=== PATIENT | female | born 1980 | race Caucasian/White ===

== ENCOUNTER 2017-03-26 17:46 | Emergency (ER) | payer SELFPAY ==
[~2017-03-26] VITALS: Ht 147.3 cm; Wt 73.6 kg
[~2017-03-26 17:46] MED LIST: IBUP1TAB73
[2017-03-26 22:09] VITALS: BP 122/82
[2017-03-26] MEDS ORDERED: FLUORESCEIN SODIUM 1MG/STRIP OP ONE (23:00)
[2017-03-26] MEDS ORDERED: TETRACAINE 0.5% OPHTH DROPS 4ML OP ONE (23:00)
[2017-03-26] MEDS ORDERED: DIPHENHYDRAMINE 50MG CAPSULE PO ONE (23:45)
== END 2017-03-27 01:13 | disposition home or self-care (01) ==
LOC: ER 17:46
DX: H10.13 Acute atopic conjunctivitis, bilateral (principal)
CPT/HCPCS: 99283; J7050; Q0163

== ENCOUNTER 2017-12-18 20:15 | Emergency (ER) | payer SELFPAY ==
[~2017-12-18] VITALS: Ht 149.9 cm; Wt 68.6 kg
[2017-12-18 21:41] VITALS: BP 139/83
== END 2017-12-18 23:45 | disposition left against medical advice (07) ==
LOC: ER 23:29
DX: Z53.21 Procedure and treatment not carried out due to patient leaving prior to being seen by health care provider (principal)

== ENCOUNTER 2024-02-06 17:03 | Emergency (ER) | payer MEDICAID ==
[~2024-02-06] VITALS: Ht 157.5 cm; Wt 82.0 kg
[2024-02-06 17:14] VITALS: O2SAT 88
[2024-02-06] MEDS ORDERED: IBUPROFEN 600MG TABLET PO STA (17:23)
[2024-02-06 17:52] LABS: BASOPHILS % 0.7 % (0.0-2.0); DIFFERENTIAL COMMENT 0; EOSINOPHILS % 2.9 % (0.0-5.0); HEMOGLOBIN. 11.6 g/dL (12.0-16.0); LYMPHOCYTES % 36.3 % (20.0-50.0); MEAN CORPUSCULAR HEMOGLOBIN 26.1 pg (28.0-32.0); MEAN CORPUSCULAR HGB CONC 33.2 g/dL (31.0-37.0); MEAN CORPUSCULAR VOLUME 78.5 fL (81.0-99.0); MEAN PLATELET VOLUME 7.1 fl (7.4-10.4); MONOCYTES % 8.6 % (2.0-8.0); NEUTROPHILS % 51.5 % (40.0-76.0); PLATELET 488 x1000/uL (130-400); RED BLOOD CELL COUNT 4.47 mill/uL (4.2-5.4); RED CELL DISTRIBUTION WIDTH 14.7 % (11.6-14.6); WHITE BLOOD COUNT 11.6 x1000/uL (4.5-11.0)
[2024-02-06 17:59] LABS: CHLORIDE 104 mEq/L (98-107); POTASSIUM 3.7 mEq/L (3.5-5.1); SODIUM 138 mEq/L (136-145)
[2024-02-06 18:00] LABS: CALCIUM 8.4 mg/dL (8.7-10.4); CARBON DIOXIDE 27 mEq/L (21-32)
[2024-02-06 18:05] LABS: CREATININE 0.6 mg/dL (0.6-1.0); GLUCOSE 103 mg/dL (70-105); UREA NITROGEN BLOOD 10 mg/dL (9-23)
[2024-02-06 18:07] LABS: ALANINE AMINOTRANSFERASE 18 IU/L (10-49); ALBUMIN 4.2 g/dL (3.2-4.8); ASPARTATE AMINOTRANSFERASE 18 IU/L (<34); BILIRUBIN TOTAL 0.2 mg/dL (0.1-1.0); PROTEIN TOTAL 7.1 g/dL (6.0-8.3)
[2024-02-06 18:13] LABS: TROPONIN I HIGH SENSITIVITY < 4 ng/L (3.0-34)
[2024-02-06] MEDS: IBUPROFEN 600MG TABLET PO NR (21:55)
[2024-02-06 22:24] LABS: TROPONIN I HIGH SENSITIVITY < 4 ng/L (3.0-34)
[2024-02-06 23:18] VITALS: BP 140/67; PULSE 78; RESP 16; TEMP 98.8
== END 2024-02-06 23:19 | disposition home or self-care (01) ==
LOC: ER 17:03
DX: R07.89 Other chest pain (principal); I10 Essential (primary) hypertension
CPT/HCPCS: 36415; 71045; 80053; 84484; 85025; 93005; 99285

== ENCOUNTER 2024-03-10 23:05 | Emergency (ER) | payer MEDICAID ==
[~2024-03-10] VITALS: Ht 160 cm; Wt 77.0 kg
[2024-03-10 23:07] VITALS: O2SAT 98
[2024-03-10] MEDS ORDERED: ASPIRIN 81MG TABLET PO ONE (23:15)
[2024-03-10 23:41] LABS: CHLORIDE 104 mEq/L (98-107); POTASSIUM 3.6 mEq/L (3.5-5.1); SODIUM 137 mEq/L (136-145)
[2024-03-10 23:42] LABS: CARBON DIOXIDE 24 mEq/L (21-32)
[2024-03-10 23:43] LABS: CALCIUM 9.4 mg/dL (8.7-10.4)
[2024-03-10 23:45] LABS: INR 0.9; PARTIAL THROMBOPLASTIN TIME 26.4 sec (23.4-31.0); PROTHROMBIN TIME 10.1 sec (9.6-11.0)
[2024-03-10 23:47] LABS: BASOPHILS % 1.3 % (0.0-2.0); CREATININE 0.7 mg/dL (0.6-1.0); DIFFERENTIAL COMMENT 0; EOSINOPHILS % 2.2 % (0.0-5.0); GLUCOSE 120 mg/dL (70-105); HEMATOCRIT. 37.1 % (36.0-48.0); HEMOGLOBIN. 12.4 g/dL (12.0-16.0); MEAN CORPUSCULAR HEMOGLOBIN 25.9 pg (28.0-32.0); MEAN CORPUSCULAR HGB CONC 33.6 g/dL (31.0-37.0); MEAN CORPUSCULAR VOLUME 77.3 fL (81.0-99.0); MEAN PLATELET VOLUME 7.3 fl (7.4-10.4); MONOCYTES % 8.5 % (2.0-8.0); PLATELET 580 x1000/uL (130-400); RED CELL DISTRIBUTION WIDTH 15.3 % (11.6-14.6); UREA NITROGEN BLOOD 7 mg/dL (9-23); WHITE BLOOD COUNT 14.4 x1000/uL (4.5-11.0)
[2024-03-10 23:49] LABS: TROPONIN I HIGH SENSITIVITY < 4 ng/L (3.0-34)
[2024-03-11 01:38] LABS: TROPONIN I HIGH SENSITIVITY < 4 ng/L (3.0-34)
[2024-03-11 04:02] VITALS: BP 158/92; PULSE 84; RESP 20; TEMP 98.3
[2024-03-11] MEDS: ASPIRIN 81MG TABLET PO NR (04:03)
== END 2024-03-11 04:05 | disposition home or self-care (01) ==
LOC: ER 23:05
DX: R07.89 Other chest pain (principal); R11.2 Nausea with vomiting, unspecified; I10 Essential (primary) hypertension
CPT/HCPCS: 80048; 83880; 85025; 85610; 85730; 84484 ×2; 36415 ×2; 71045; 93005; 99285; Z7610

== ENCOUNTER 2024-05-15 22:55 | Emergency (ER) | payer MEDICAID ==
[~2024-05-15] VITALS: Ht 160 cm; Wt 89.0 kg
[2024-05-15 23:00] VITALS: O2SAT 99
[2024-05-15 23:26] LABS: BASOPHILS % 0.8 % (0.0-2.0); DIFFERENTIAL COMMENT 0; EOSINOPHILS % 0.7 % (0.0-5.0); HEMATOCRIT. 37.2 % (36.0-48.0); HEMOGLOBIN. 12.2 g/dL (12.0-16.0); LYMPHOCYTES % 25.1 % (20.0-50.0); MEAN CORPUSCULAR HEMOGLOBIN 25.9 pg (28.0-32.0); MEAN CORPUSCULAR HGB CONC 32.9 g/dL (31.0-37.0); MEAN CORPUSCULAR VOLUME 78.6 fL (81.0-99.0); MEAN PLATELET VOLUME 7.3 fl (7.4-10.4); MONOCYTES % 5.4 % (2.0-8.0); PLATELET 585 x1000/uL (130-400); RED BLOOD CELL COUNT 4.73 mill/uL (4.2-5.4); RED CELL DISTRIBUTION WIDTH 14.7 % (11.6-14.6); WHITE BLOOD COUNT 16.8 x1000/uL (4.5-11.0)
[2024-05-15 23:30] LABS: CHLORIDE 106 mEq/L (98-107); POTASSIUM 3.6 mEq/L (3.5-5.1); SODIUM 137 mEq/L (136-145)
[2024-05-15 23:31] LABS: CARBON DIOXIDE 20 mEq/L (21-32)
[2024-05-15 23:32] LABS: CALCIUM 9.6 mg/dL (8.7-10.4)
[2024-05-15 23:37] LABS: CREATININE 0.6 mg/dL (0.6-1.0); GLUCOSE 108 mg/dL (70-105); UREA NITROGEN BLOOD 7 mg/dL (9-23)
[2024-05-15 23:58] LABS: TROPONIN I HIGH SENSITIVITY < 4 ng/L (3.0-34)
[2024-05-16] MEDS ORDERED: IBUP-2029 MT (00:55)
[2024-05-16 01:15] VITALS: BP 141/91; PULSE 82; RESP 20; TEMP 98.9
== END 2024-05-16 01:15 | disposition home or self-care (01) ==
LOC: ER 22:55
DX: R07.89 Other chest pain (principal); I10 Essential (primary) hypertension
CPT/HCPCS: 36415; 71045; 80048; 84484; 85025; 93005; 99285